=== PATIENT | female | born 1980 | race Asian ===

== ENCOUNTER 2019-09-27 06:43 | Day surgery (SDC) | payer OTHER, SELFPAY ==
[2019-09-23 10:21] LABS: BILIRUBIN,URINE NEGATIVE (NEGATIVE); BLOOD, URINE NEGATIVE (NEGATIVE); CLARITY/URINE SL CLOUDY (CLEAR); COLOR,URINE YELLOW (YELLOW); GLUCOSE,URINE NEGATIVE (NEGATIVE); KETONES,URINE NEGATIVE (NEGATIVE); LEUKOCYTE ESTERASE ,URINE NEGATIVE (NEGATIVE); NITRITE, URINE NEGATIVE (NEGATIVE); PH,URINE 5.5 (5.0-8.0); PROTEIN URINE NEGATIVE (NEGATIVE); UROBILINOGEN,URINE 0.2 (0.2-1.0)
[2019-09-23 10:27] LABS: BASOPHILS # (AUTO) 0.1 K/uL (0.0-0.2); BASOPHILS % (AUTO) 1.3 % (0.0-2.0); EOSINOPHILS # (AUTO) 0.2 K/uL (0.0-0.4); EOSINOPHILS % (AUTO) 3.6 % (0.0-4.0); HEMATOCRIT 38.9 % (36-48); HEMOGLOBIN 13.2 g/dL (12.0-16.0); LYMPHOCYTES # (AUTO) 1.8 K/uL (1.0-5.5); LYMPHOCYTES % (AUTO) 39.8 % (20.5-51.5); MEAN CORPUSCULAR HEMOGLOBIN 30 pg (27-31); MEAN CORPUSCULAR HGB CONC 34 % (32-36); MEAN CORPUSCULAR VOLUME 88 fL (79.0-98.0); MONOCYTES # (AUTO) 0.4 K/uL (0.0-1.0); MONOCYTES % (AUTO) 8.2 % (1.7-9.3); NEUTROPHILS # (AUTO) 2.1 K/uL (1.8-7.7); NEUTROPHILS % (AUTO) 47.1 % (40.0-70.0); PLATELET COUNT (AUTO) 210 K/uL (130-430); RED BLOOD CELL COUNT(AUTO) 4.42 MIL/uL (4.2-6.2); RED CELL DISTRIBUTION WIDTH 12.5 % (9.0-15.0); WHITE BLOOD COUNT (AUTO) 4.5 K/uL (4.8-10.8)
[2019-09-23 10:37] LABS: CREATININE 0.91 mg/dL (0.55-1.30); POTASSIUM 4.4 mmol/L (3.5-5.1)
[~2019-09-27] VITALS: Ht 157.5 cm; Wt 83.9 kg
[2019-09-27 06:50] LABS: HCG,QUAL RESULT NEGATIVE (NEGATIVE)
[2019-09-27] MEDS ORDERED: LR 1,000 ML IV SCH (09:34)
[2019-09-27] MEDS ORDERED: KETOROLAC TROMETHAMINE 30 MG VIAL IVP PRN (09:45)
[2019-09-27] MEDS ORDERED: ONDANSETRON HCL 4 MG/2 ML VIAL IVP PRN (09:45)
[2019-09-27] MEDS ORDERED: NALOXONE HCL 0.4 MG/ML AMP (NARCAN) IVP PRN (09:45)
[2019-09-27] MEDS ORDERED: HYDROmorphone 1 MG INJ. 1 MG/ML AMPUL IVP PRN ×2 (09:45)
[2019-09-27] MEDS ORDERED: METOCLOPRAMIDE HCL 10 MG/2 ML VIAL IVP PRN (09:45)
[2019-09-27] MEDS ORDERED: ePHEDrine sulfate 50 MG/ML VIAL IVP PRN (09:45)
[2019-09-27] MEDS ORDERED: fentaNYL CITRATE/PF 100 MCG/2 ML AMP ONE (10:09)
[2019-09-27] MEDS ORDERED: cefOXitin 2 GM IVPB PREMIX 50 ML IV ONE (10:09)
[2019-09-27] MEDS ORDERED: PROPOFOL 200MG/ 20ML VIAL (DIPRIVAN) IV ONE (10:09)
[2019-09-27] MEDS ORDERED: MIDAZOLAM HCL 5 MG/ML VIAL (VERSED) IV ONE (10:09)
[2019-09-27] MEDS ORDERED: SEVOFLURANE 15 MIN GAS INH ONE (10:09)
[2019-09-27] MEDS ORDERED: SUCCINYLCHOLINE CHLORIDE 20 MG/ML(QUELICIN) ONE (10:09)
[2019-09-27] MEDS ORDERED: LR 1,000 ML IV.SOLN IV ONE (10:09)
[2019-09-27] MEDS ORDERED: HYDROmorphone 1 MG INJ. 1 MG/ML AMPUL ONE (10:29)
[2019-09-27 10:58] VITALS: BP_SYST 120
== END 2019-09-27 13:20 | disposition home or self-care (01) ==
LOC: SDS 06:43 → SMU 06:43 → SDS 13:20
PROVIDERS: ATTEND Surgery
DX: K60.3 Anal fistula (principal); K64.8 Other hemorrhoids; K64.4 Residual hemorrhoidal skin tags; K62.1 Rectal polyp; Z98.890 Other specified postprocedural states; Z11.59 Encounter for screening for other viral diseases
CPT/HCPCS: 36415; 45190; 45330; 46230; 46258; 80048; 81003; 84703; 85025; 88304; 88305; 93005; J0330; J0694; J1170; J2250; J2704; J3010; J7120; U0003

== ENCOUNTER 2020-01-04 06:21 | Day surgery (SDC) | payer OTHER, SELFPAY ==
[~2020-01-04] VITALS: Ht 157.5 cm; Wt 83.5 kg
[2020-01-04 07:28] LABS: HCG,QUAL RESULT NEGATIVE (NEGATIVE)
[2020-01-04] MEDS ORDERED: SIMETHICONE 40 MG/0.6 ML ML ONE (07:31)
[2020-01-04] MEDS ORDERED: fentaNYL CITRATE/PF 100 MCG/2 ML AMP ONE ×2 (07:31→08:34)
[2020-01-04] MEDS ORDERED: MIDAZOLAM HCL 5 MG/5 ML VIAL ONE ×2 (07:32→08:35)
[2020-01-04 10:24] VITALS: BP_SYST 125
== END 2020-01-04 09:30 | disposition home or self-care (01) ==
LOC: SDS 06:21 → SMU 06:21 → SDS 09:30
PROVIDERS: ATTEND Surgery
DX: K62.5 Hemorrhage of anus and rectum (principal); K64.8 Other hemorrhoids; Z20.828 Contact with and (suspected) exposure to other viral communicable diseases
CPT/HCPCS: 45380; 84703; 88305; 99152; G0378; J2250; J3010; J7030; U0003

== ENCOUNTER 2020-02-16 11:34 | Day surgery (SDC) | payer OTHER, SELFPAY ==
[2020-02-13 08:39] LABS: BASOPHILS # (AUTO) 0.1 K/uL (0.0-0.2); EOSINOPHILS # (AUTO) 0.2 K/uL (0.0-0.4); EOSINOPHILS % (AUTO) 3.5 % (0.0-4.0); HEMATOCRIT 37.7 % (36-48); HEMOGLOBIN 12.8 g/dL (12.0-16.0); LYMPHOCYTES # (AUTO) 2.1 K/uL (1.0-5.5); LYMPHOCYTES % (AUTO) 37.1 % (20.5-51.5); MEAN CORPUSCULAR HEMOGLOBIN 30 pg (27-31); MEAN CORPUSCULAR HGB CONC 34 % (32-36); MEAN CORPUSCULAR VOLUME 88 fL (79.0-98.0); MONOCYTES # (AUTO) 0.4 K/uL (0.0-1.0); MONOCYTES % (AUTO) 7.2 % (1.7-9.3); NEUTROPHILS % (AUTO) 51.2 % (40.0-70.0); PLATELET COUNT (AUTO) 238 K/uL (130-430); RED CELL DISTRIBUTION WIDTH 12.5 % (9.0-15.0); WHITE BLOOD COUNT (AUTO) 5.8 K/uL (4.8-10.8)
[2020-02-13 09:24] LABS: CALCIUM 9.3 mg/dL (8.4-11.0); CREATININE 0.75 mg/dL (0.55-1.30); POTASSIUM 3.9 mmol/L (3.5-5.1); TOTAL BILIRUBIN 0.4 mg/dL (0.0-1.0)
[~2020-02-16] VITALS: Ht 157.5 cm; Wt 83.5 kg
[2020-02-16 12:39] LABS: HCG,QUAL RESULT NEGATIVE (NEGATIVE)
[2020-02-16] MEDS ORDERED: MORPHINE 4 MG/ML INJ. SYRINGE IVP PRN (14:00)
[2020-02-16] MEDS ORDERED: ONDANSETRON HCL 4 MG/2 ML VIAL IVP PRN ×2 (14:00→14:15)
[2020-02-16] MEDS ORDERED: ACETAMINOPHEN/CODEINE 300 MG-30 MG TABLET PO PRN (14:00)
[2020-02-16] MEDS ORDERED: SEVOFLURANE 15 MIN GAS INH ONE (14:10)
[2020-02-16] MEDS ORDERED: PROPOFOL 200MG/ 20ML VIAL (DIPRIVAN) IV ONE (14:10)
[2020-02-16] MEDS ORDERED: ONDANSETRON HCL 4 MG/2 ML VIAL ONE (14:10)
[2020-02-16] MEDS ORDERED: LR 1,000 ML IV.SOLN IV ONE (14:10)
[2020-02-16] MEDS ORDERED: METOCLOPRAMIDE HCL 10 MG/2 ML VIAL ONE (14:10)
[2020-02-16] MEDS ORDERED: CEFAZOLIN 2 GM IVPB PREMIX 50 ML IV ONE (14:10)
[2020-02-16] MEDS ORDERED: NEOSTIGMINE METHYLSULFATE 1 MG/ML, 10 ML VIAL ONE (14:10)
[2020-02-16] MEDS ORDERED: KETOROLAC TROMETHAMINE 30 MG VIAL ONE (14:10)
[2020-02-16] MEDS ORDERED: ROCURONIUM BROMIDE 10 MG/ML (ZEMURON) ONE (14:10)
[2020-02-16] MEDS ORDERED: fentaNYL CITRATE/PF 100 MCG/2 ML AMP ONE (14:10)
[2020-02-16] MEDS ORDERED: GLYCOPYRROLATE 0.2 MG/ML VIAL ONE (14:10)
[2020-02-16] MEDS ORDERED: NS IRRIG SOLN 1000 ML IR ONE (14:10)
[2020-02-16] MEDS ORDERED: LIDOCAINE/EPI 1% 1:100000 20 ML VIAL INJ ONE (14:10)
[2020-02-16] MEDS ORDERED: MIDAZOLAM HCL 5 MG/ML VIAL (VERSED) IV ONE (14:10)
[2020-02-16] MEDS ORDERED: METHYLENE BLUE 1 ML AMPUL INJ ONE (14:10)
[2020-02-16] MEDS ORDERED: HYDROmorphone 1 MG INJ. 1 MG/ML AMPUL ONE ×2 (14:13→14:35)
[2020-02-16] MEDS ORDERED: METOCLOPRAMIDE HCL 10 MG/2 ML VIAL IVP PRN (14:15)
[2020-02-16] MEDS ORDERED: LR 1,000 ML IV SCH (14:15)
[2020-02-16] MEDS ORDERED: KETOROLAC TROMETHAMINE 30 MG VIAL IVP PRN ×3 (14:15)
[2020-02-16] MEDS ORDERED: HYDROmorphone 1 MG INJ. 1 MG/ML AMPUL IVP PRN ×2 (14:15)
[2020-02-16 15:05] VITALS: BP_SYST 129
== END 2020-02-16 16:40 | disposition home or self-care (01) ==
LOC: SDS 11:34 → SMU 11:34 → SDS 16:40
PROVIDERS: ATTEND Surgery
DX: K60.3 Anal fistula (principal); E66.01 Morbid (severe) obesity due to excess calories; M19.90 Unspecified osteoarthritis, unspecified site; Z79.899 Other long term (current) drug therapy; Z20.828 Contact with and (suspected) exposure to other viral communicable diseases
CPT/HCPCS: 36415; 46020; 80053; 84703 ×2; 85025; J0690; J1170; J1885; J2250; J2405; J2704; J2710; J2765; J3010; J3490; J7120; Q9968; U0003

== ENCOUNTER 2020-03-15 10:51 | Day surgery (SDC) | payer OTHER, SELFPAY ==
[2020-03-12 11:05] LABS: HCG,QUAL RESULT NEGATIVE (NEGATIVE)
[~2020-03-15] VITALS: Ht 157.5 cm; Wt 81.6 kg
[2020-03-15] MEDS ORDERED: CEFAZOLIN SOD 1 GM in D5W 50 ML IV ONE (12:45)
[2020-03-15] MEDS ORDERED: ceFAZolin SODIUM 1 GM VIAL ONE (12:45)
[2020-03-15] MEDS ORDERED: CEFAZOLIN 1 GM IVPB PREMIX 50 ML IV ONE (12:46)
[2020-03-15] MEDS ORDERED: HYDROmorphone 1 MG INJ. 1 MG/ML AMPUL IVP PRN (13:15)
[2020-03-15] MEDS ORDERED: KETOROLAC TROMETHAMINE 30 MG VIAL IVP PRN (13:15)
[2020-03-15] MEDS ORDERED: ONDANSETRON HCL 4 MG/2 ML VIAL IVP PRN ×2 (13:15→14:00)
[2020-03-15] MEDS ORDERED: MEPERIDINE HCL/PF 25 MG/ML DISP.SYRIN IVP PRN (13:15)
[2020-03-15] MEDS ORDERED: ACETAMINOPHEN/CODEINE 300 MG-30 MG TABLET PO PRN (14:00)
[2020-03-15] MEDS ORDERED: MORPHINE 4 MG/ML INJ. SYRINGE IVP PRN (14:00)
[2020-03-15 15:10] VITALS: BP_SYST 134
== END 2020-03-15 16:00 | disposition home or self-care (01) ==
LOC: SDS 10:51 → SMU 10:51 → SDS 16:00
PROVIDERS: ATTEND Surgery
DX: K60.3 Anal fistula (principal); M19.90 Unspecified osteoarthritis, unspecified site; Z20.828 Contact with and (suspected) exposure to other viral communicable diseases
CPT/HCPCS: 46030; 84703; J0690; J7120; U0003; J7060

== ENCOUNTER 2022-09-18 10:05 | Outpatient (CLI) | payer OTHER | END 2022-09-18 18:12 | disposition home or self-care (01) | LOC: SRD 10:05 | PROVIDERS: ATTEND Family Medicine | DX: M77.52 Other enthesopathy of left foot and ankle (principal); M77.32 Calcaneal spur, left foot; M79.672 Pain in left foot ==

== ENCOUNTER 2023-05-28 10:37 | Outpatient (CLI) | payer OTHER | END 2023-05-28 21:03 | disposition home or self-care (01) | LOC: SUS 10:37 | PROVIDERS: ATTEND Family Medicine | DX: N94.0 Mittelschmerz (principal) | CPT/HCPCS: 76856 ==

== ENCOUNTER 2023-06-05 13:03 | Outpatient (CLI) | payer OTHER | END 2023-06-05 18:49 | disposition home or self-care (01) | LOC: SMA 13:03 | PROVIDERS: ATTEND Family Medicine | DX: Z12.31 Encounter for screening mammogram for malignant neoplasm of breast (principal) | CPT/HCPCS: 77067 ==